=== PATIENT | female | born 1960 | race Two or more races ===

== ENCOUNTER 2016-07-26 17:52 | Emergency (ER) | payer OTHER ==
[2016-07-26 18:33] LABS: BASO % 0.4 % (0.2-1.0); EOS # 0.1 (0.0-0.5); HEMATOCRIT 39.9 % (37.0-47.0); HEMOGLOBIN 13.3 gm/l (12.0-16.0); IMM NEUT # 0.1 K/mm3 (0-0.2); IMM NEUT% 0.5 % (0-1); LYMPH # 2.2 (1.0-4.8); MEAN CELL VOLUME 89.7 fl (81.0-99.0); MEAN CORPUSCULAR HEMOGLOBIN 29.9 pg (27.0-31.0); MEAN CORPUSCULAR HGB CONC 33.3 g/dl (33.0-37.0); MEAN PLATELET VOLUME 12.1 fl (7.4-10.4); MONO # 0.9 (0.0-0.8); MONO % 9.5 % (4-12); NEUT % 64.6 % (43-75); PLATELET COUNT 251 K/mm3 (130-400)
[2016-07-26 18:45] LABS: ALB/GLOB RATIO 1.4 (>1.0); ALBUMIN 4.2 gm/dL (3.5-5.7); CALCIUM 9.3 mg/dL (8.6-10.3)
[2016-07-26 18:56] LABS: SPECIFIC GRAVITY 1.025 (1.001-1.030); URINE BILIRUBIN NEGATIVE (NEGATIVE); URINE BLOOD NEGATIVE (NEGATIVE); URINE GLUCOSE (UA) 3+ (NEGATIVE); URINE LEUKOCYTE ESTERASE NEGATIVE (NEGATIVE); URINE NITRITE NEGATIVE (NEGATIVE); URINE PROTEIN TRACE (NEGATIVE); URINE UROBILINOGEN NORMAL (0-1 mg/dl)
[2016-07-26 19:00] LABS: URINE APPEARANCE CLEAR; URINE COLOR YELLOW
[2016-07-26] MEDS: IOPAMIDOL 370 (76%) IV.SOLN 150 ML IV ONE (19:14)
[2016-07-26] MEDS ORDERED: ONDANSETRON 4 MG/2ML 2 ML VIAL ONE (19:27)
[2016-07-26] MEDS ORDERED: LACTATED RINGERS 1,000 ML ONE (19:27)
[2016-07-26] MEDS ORDERED: DIPHENHYDRAMINE HCL 50 MG/1 ML VIAL ONE (19:27)
--- NOTE | 2016-07-26 19:51 | CT ---
CHEST ABDOMEN PELVIS CT WITH CONTRAST HISTORY: Left flank pain, possible left upper back trauma at the subscapular region. TECHNIQUE: Following the administration of 100 cc Isovue-370 intravenous contrast, contiguous axial images were acquired from the thoracic inlet to the ischial tuberosities. COMPARISON: None. FINDINGS: THORAX LUNGS: No gross airspace abnormality. No pleural effusion. Multiple small pulmonary nodules, a few of which are calcified in nature. Noncalcified nodules up to 2 mm in size seen at right upper and right lower lobes. No gross airspace disease, pleural effusion, or pneumothorax. ADDY AND MEDIASTINUM: No enlarged lymph nodes. AXILLAE: No grossly enlarged lymph nodes. SUPRACLAVICULAR FOSSAE: No enlarged lymph nodes. ABDOMEN AND PELVIS LIVER AND SPLEEN: No focal lesion detected. ADRENAL GLANDS AND PANCREAS: Grossly unremarkable. KIDNEYS: Minor foci of scarring and cystic change of the left kidney without collecting system dilatation, cyst measuring up to 6 mm in size. GALLBLADDER: Present. BOWEL: Moderate fecal loading. Limited assessment of the distal colon due to decompression. . Fecaloid content also seen within distal small bowel. Minor features of diverticulosis without diverticulitis. The appendix is not seen. PELVIC ORGANS: Status post hysterectomy, no adnexal mass effect. FREE FLUID: No gross free fluid identified. ABDOMINOPELVIC LYMPH NODES: No abnormally enlarged lymph nodes identified. ABDOMINAL AORTA: Normal caliber. OSSEOUS STRUCTURES: Minor changes of disc degeneration with discussed by ridge formation at T8-9 with a small low-attenuation lesion of the T10 vertebra measuring 7 mm in size. Limbus vertebra at the L5 level. Visible portions of the left scapula appears grossly intact. IMPRESSION: 1. Minor scarring and cystic change of the left kidney without evidence of dominant mass lesion or upper tract obstruction. 2. Moderate fecal content with fecaloid content within small bowel which can indicate constipation or motility abnormality. 3. Evidence of granulomatous exposure. Small pulmonary nodules which are noncalcified measuring up to 2 mm in size, recommend 12 month follow-up if there is a history of smoking or personal history of neoplasm. 4. Indeterminate subcentimeter low-attenuation lesion of the T10 vertebra. Consider plain film follow-up. No clear correlate to history of left-sided subscapular pain. 5. Post hysterectomy change. Results were electronically transmitted to the electronic medical record at 07/26/2016 at 1947 hours.
== END 2016-07-26 21:21 | disposition home or self-care (01) ==
LOC: ED 17:52
DX: R10.9 Unspecified abdominal pain (principal); I10 Essential (primary) hypertension; J45.909 Unspecified asthma, uncomplicated; E11.9 Type 2 diabetes mellitus without complications; E78.5 Hyperlipidemia, unspecified; E78.00 Pure hypercholesterolemia, unspecified